=== PATIENT | female | born 1940 | race Caucasian/White ===

== ENCOUNTER 2017-06-20 16:58 | Emergency (ER) | payer MEDICARE ==
[~2017-06-20 16:58] MED LIST: ALPR-411 PO; CLOP75TA32 PO; LEVO150T11 PO; OMEP40CA37 PO; POLY17PO4 PO; PROC10TA13 PO; PROP150T28 PO; SUCR1TAB2 PO; VALA500T38 PO
[2017-06-20] MEDS ORDERED: OCTYL 2-CYANOACRYLATE 1 EACH TP ONE (17:42)
[2017-06-20] MEDS ORDERED: KETOROLAC TROMETHAMINE 30MG/ML ONE (17:56)
[2017-06-20] MEDS ORDERED: ONDANSETRON ODT 4 MG TAB ONE (17:56)
== END 2017-06-20 18:20 | disposition home or self-care (01) ==
LOC: EDH 16:58
DX: S51.811A Laceration without foreign body of right forearm, initial encounter (principal); S40.022A Contusion of left upper arm, initial encounter; W18.39XA Other fall on same level, initial encounter; Y93.K1 Activity, walking an animal; Y92.098 Other place in other non-institutional residence as the place of occurrence of the external cause; Y99.8 Other external cause status
CPT/HCPCS: 12002; 73030; 73060; 73090; 73110; 96372; 99284; J1885

== ENCOUNTER → 2018-02-21 | Outpatient (CLI) | payer MEDICARE ==
[~2018-02-21] MED LIST changes: +LEVO500T2 PO
[2018-02-21 08:33] LABS: CREATININE 1.5 mg/dL (0.5-1.5)
== END | disposition home or self-care (01) ==
LOC: LAB 08:09
PROVIDERS: ATTEND Physical Medicine & Rehabilitation
DX: M48.56XA Collapsed vertebra, not elsewhere classified, lumbar region, initial encounter for fracture (principal); G43.909 Migraine, unspecified, not intractable, without status migrainosus; N18.3 Chronic kidney disease, stage 3 (moderate)
CPT/HCPCS: 36415; 82565; 84520

== ENCOUNTER → 2018-02-23 | Outpatient (CLI) | payer MEDICARE ==
[~2018-02-23] MED LIST changes: +FENTANYL CITRATE PF 50 MCG/1 ML 2ML VIAL ONE; +GADODIAMIDE 10 MMOL/20 ML ML IV ONE; +GADODIAMIDE 5 MMOL/10 ML VIAL 5 MMOL/10 ML ML IV ONE; +MIDAZOLAM HCL 1 MG/ML 2ML VIAL ONE
== END | disposition home or self-care (01) ==
LOC: RAH 07:31
PROVIDERS: ATTEND Physical Medicine & Rehabilitation
DX: M48.56XA Collapsed vertebra, not elsewhere classified, lumbar region, initial encounter for fracture (principal); M47.896 Other spondylosis, lumbar region; M48.061 Spinal stenosis, lumbar region without neurogenic claudication; M51.26 Other intervertebral disc displacement, lumbar region; I12.9 Hypertensive chronic kidney disease with stage 1 through stage 4 chronic kidney disease, or unspecified chronic kidney disease; N18.3 Chronic kidney disease, stage 3 (moderate); E03.9 Hypothyroidism, unspecified; I25.10 Atherosclerotic heart disease of native coronary artery without angina pectoris; Z90.49 Acquired absence of other specified parts of digestive tract; Z90.710 Acquired absence of both cervix and uterus
CPT/HCPCS: 72158; A9579; J2250; J3010; 99152; 99153

== ENCOUNTER 2018-02-24 22:28 | Inpatient (IN) | payer MEDICARE ==
[~2018-02-24] VITALS: Ht 170.2 cm; Wt 61.2 kg
[2018-02-24 21:05] VITALS: BP 107/48
[~2018-02-24 22:28] MED LIST changes: -FENTANYL CITRATE PF 50 MCG/1 ML 2ML VIAL ONE; -GADODIAMIDE 10 MMOL/20 ML ML IV ONE; -GADODIAMIDE 5 MMOL/10 ML VIAL 5 MMOL/10 ML ML IV ONE; -LEVO500T2 PO; -MIDAZOLAM HCL 1 MG/ML 2ML VIAL ONE
[2018-02-24] MEDS ORDERED: KETOROLAC TROMETHAMINE 30MG/ML ONE (22:59)
[2018-02-24] MEDS ORDERED: SODIUM CHLORIDE 0.9% 1000ML 1,000 ML IV ONE (22:59)
[2018-02-24] MEDS ORDERED: ONDANSETRON HCL 4 MG/2 ML VIAL ONE (22:59)
[2018-02-24 23:31] LABS: BASOPHILS % (AUTO) 0.6 % (0.0-5.0); EOSINOPHILS % (AUTO) 1.7 % (0.0-8.0); LYMPHOCYTES % (AUTO) 9.6 % (21.0-51.0); MEAN CORPUSCULAR HEMOGLOBIN 28.6 pg (27.0-33.0); MEAN CORPUSCULAR HGB CONC 32.6 g/dL (32.0-36.0); MEAN CORPUSCULAR VOLUME 87.8 fL (79-99); MONOCYTES % (AUTO) 5.7 % (3.0-13.0); NEUTROPHILS % (AUTO) 82.4 % (40.0-77.0); NUCLEATED RED BLOOD CELLS 0.1 % (0.0-0.19); PLATELET COUNT (AUTO) 635 K/uL (130-400); RED BLOOD CELL COUNT(AUTO) 5.01 MIL/uL (4.00-5.50); RED CELL DISTRIBUTION WIDTH 15.8 % (11.0-15.5); WHITE BLOOD COUNT (AUTO) 19.4 K/uL (4.8-10.8)
[2018-02-24 23:36] LABS: CREATININE 1.3 mg/dL (0.5-1.5); POTASSIUM 4.8 mmol/L (3.5-5.1)
[2018-02-24 23:40] LABS: ALBUMIN 3.3 g/dL (3.5-5.0); BILIRUBIN,TOTAL 0.3 mg/dL (0.2-1.0); TOTAL PROTEIN, SERUM 6.8 g/dL (6.0-8.3)
[2018-02-25] MEDS ORDERED: IOHEXOL-350 75 ML VIAL IV ONE (00:08)
[2018-02-25] MEDS ORDERED: MORPHINE SULFATE 2 MG/ML 1ML SYG ONE (00:09)
[2018-02-25] MEDS ORDERED: ZOSYN 3.375GM+NS 50ML 50 ML IV ONE (00:09)
[2018-02-25] MEDS ORDERED: SODIUM CHLORIDE 0.9% 100 ML IV ONE (00:09)
[2018-02-25 00:22] LABS: APPEARANCE,URINE Clear (CLEAR); BILIRUBIN,URINE Negative (NEGATIVE); COLOR,URINE Yellow (YELLOW); GLUCOSE, URINE (UA) Negative (NEGATIVE); KETONES,URINE Trace mg/dL (NEGATIVE); LEUKOCYTE ESTERASE ,URINE Negative (NEGATIVE); NITRATE,URINE Negative (NEGATIVE); OCCULT BLOOD,URINE Negative (NEGATIVE); PH,URINE 5.5 (5.0-8.0); PROTEIN,URINE Trace (NEGATIVE); UROBILINOGEN,URINE 0.2 mg/dL (0.2-1.0)
[2018-02-25 00:33] LABS: BACTERIA,URINE None Seen /HPF (None Seen); RBC,URINE None Seen /HPF (0-1); WBC,URINE None Seen /HPF (0-1)
[2018-02-25 00:34] LABS: HYALINE CASTS, URINE 0-1 /LPF (0-1 /LPF); MUCUS,URINE Rare LPF (None Seen); SQUAMOUS EPITHELIAL CELL,UR Rare /HPF (0-2)
[2018-02-25] MEDS: SODIUM CHLORIDE 0.9% 1000ML 1,000 ML IV SCH ×3 (02:20→22:20)
[2018-02-25] MEDS ORDERED: MORPHINE SULFATE 4 MG/1ML SYG IV PRN (02:30)
[2018-02-25] MEDS ORDERED: ACETAMINOPHEN 325 MG TAB PO PRN (02:30)
[2018-02-25 03:58] VITALS: BP 112/42
[2018-02-25] MEDS: ZOSYN 3.375GM+NS 50ML 50 ML IV SCH ×3 (04:33→20:33)
[2018-02-25] MEDS: MORPHINE SULFATE 2 MG/ML 1ML SYG IV PRN ×4 (04:41→20:37)
[2018-02-25] MEDS: ONDANSETRON HCL MDV 20ML 2 MG/ML VIAL IV PRN ×3 (04:52→20:35)
[2018-02-25 08:00] VITALS: BP 122/63
[2018-02-25] MEDS: FAMOTIDINE/PF 20 MG/2 ML VIAL IV SCH (09:29)
[2018-02-25] MEDS: ENOXAPARIN SODIUM 30 MG/0.3 ML SQ SCH (09:30)
[2018-02-25] MEDS: ***HM***(Prochlorperazine Maleate 10 MG) PO SCH ×3 (11:25→20:38)
[2018-02-25 11:51] VITALS: BP 116/56
[2018-02-25] MEDS: SUCRALFATE 1 GM TABLET PO SCH ×2 (12:46→17:00)
[2018-02-25] MEDS: TRAMADOL HCL 50 MG TABLET PO SCH ×3 (12:46→23:26)
[2018-02-25] MEDS: PANTOPRAZOLE SODIUM 40 MG TABLET.DR PO SCH (15:22)
[2018-02-25] MEDS: PROPAFENONE HCL 150 MG TABLET PO SCH ×2 (15:22→20:36)
[2018-02-25] MEDS: POLYETHYLENE GLYCOL 3350 17 GM POWD.PACK PO SCH ×2 (15:22→20:37)
[2018-02-25 16:00] VITALS: BP 154/54
[2018-02-25 20:00] VITALS: BP 150/54
[2018-02-25] MEDS: PREGABALIN 75 MG CAPSULE PO SCH (20:36)
[2018-02-25] MEDS: BACLOFEN 10 MG TABLET PO SCH (20:36)
[2018-02-25] MEDS: ALPRAZOLAM 1 MG TAB PO SCH (20:36)
[2018-02-25] MEDS: DEXAMETHASONE 4 MG TAB PO SCH (20:50)
[2018-02-26] VITALS: BP 144/54
[2018-02-26 04:00] VITALS: BP 117/50
[2018-02-26 05:18] LABS: BASOPHILS % (AUTO) 0.4 % (0.0-5.0); HEMATOCRIT 30.7 % (36-48); MEAN CORPUSCULAR HEMOGLOBIN 29.2 pg (27.0-33.0); MEAN CORPUSCULAR HGB CONC 33.6 g/dL (32.0-36.0); MEAN CORPUSCULAR VOLUME 86.7 fL (79-99); MONOCYTES % (AUTO) 0.9 % (3.0-13.0); NEUTROPHILS % (AUTO) 85.7 % (40.0-77.0); PLATELET COUNT (AUTO) 446 K/uL (130-400); RED BLOOD CELL COUNT(AUTO) 3.54 MIL/uL (4.00-5.50); RED CELL DISTRIBUTION WIDTH 15.9 % (11.0-15.5); WHITE BLOOD COUNT (AUTO) 5.2 K/uL (4.8-10.8)
[2018-02-26 05:32] LABS: BILIRUBIN,TOTAL 0.3 mg/dL (0.2-1.0); CREATININE 1.3 mg/dL (0.5-1.5); TOTAL PROTEIN, SERUM 6.5 g/dL (6.0-8.3)
[2018-02-26] MEDS: ***HM***(Prochlorperazine Maleate 10 MG) PO SCH ×3 (06:00→21:39)
[2018-02-26] MEDS: LEVOTHYROXINE 150 MCG TABLET PO SCH (06:19)
[2018-02-26] MEDS: PANTOPRAZOLE SODIUM 40 MG TABLET.DR PO SCH ×2 (06:19→16:50)
[2018-02-26] MEDS: TRAMADOL HCL 50 MG TABLET PO SCH ×3 (06:23→17:00)
[2018-02-26] MEDS: ZOSYN 3.375GM+NS 50ML 50 ML IV SCH ×3 (06:36→21:38)
[2018-02-26 08:00] VITALS: BP 146/62
[2018-02-26] MEDS: SODIUM CHLORIDE 0.9% 1000ML 1,000 ML IV SCH ×2 (08:20→22:17)
[2018-02-26] MEDS: VALACYCLOVIR HCL 500 MG TABLET PO SCH (08:56)
[2018-02-26] MEDS: CLOPIDOGREL BISULFATE 75 MG TAB PO SCH (08:56)
[2018-02-26] MEDS: DEXAMETHASONE 4 MG TAB PO SCH ×3 (08:56→21:38)
[2018-02-26] MEDS: PREGABALIN 75 MG CAPSULE PO SCH ×2 (08:56→21:37)
[2018-02-26] MEDS: POLYETHYLENE GLYCOL 3350 17 GM POWD.PACK PO SCH ×3 (08:57→21:38)
[2018-02-26] MEDS: PROPAFENONE HCL 150 MG TABLET PO SCH ×3 (08:57→21:37)
[2018-02-26] MEDS: ALPRAZOLAM 1 MG TAB PO SCH ×2 (08:57→21:37)
[2018-02-26] MEDS: FAMOTIDINE/PF 20 MG/2 ML VIAL IV SCH (09:00)
[2018-02-26] MEDS ORDERED: LIDOCAINE 5% TOPICAL PATCH TP SCH (09:00)
[2018-02-26] MEDS: ENOXAPARIN SODIUM 30 MG/0.3 ML SQ SCH (09:05)
[2018-02-26 11:00] VITALS: BP 109/62
[2018-02-26] MEDS: SUCRALFATE 1 GM TABLET PO SCH ×3 (12:23→16:50)
[2018-02-26] MEDS: MORPHINE SULFATE 2 MG/ML 1ML SYG IV PRN (13:40)
[2018-02-26 16:00] VITALS: BP 150/74
[2018-02-26 19:10] VITALS: BP 157/60
[2018-02-26] MEDS ORDERED: SODIUM CHLORIDE 0.9% 100 ML IV ONE (21:19)
[2018-02-26] MEDS: BACLOFEN 10 MG TABLET PO SCH (21:38)
[2018-02-27 00:10] VITALS: BP 142/65
[2018-02-27] MEDS: TRAMADOL HCL 50 MG TABLET PO SCH ×3 (00:21→12:27)
[2018-02-27 04:10] VITALS: BP 118/59
[2018-02-27] MEDS ORDERED: SODIUM CHLORIDE 0.9% 100 ML IV ONE (04:35)
[2018-02-27] MEDS: ***HM***(Prochlorperazine Maleate 10 MG) PO SCH ×2 (05:00→12:30)
[2018-02-27] MEDS: ZOSYN 3.375GM+NS 50ML 50 ML IV SCH ×2 (05:00→13:14)
[2018-02-27] MEDS: LEVOTHYROXINE 150 MCG TABLET PO SCH (06:15)
[2018-02-27] MEDS: SUCRALFATE 1 GM TABLET PO SCH ×2 (07:05→12:27)
[2018-02-27] MEDS: PANTOPRAZOLE SODIUM 40 MG TABLET.DR PO SCH ×2 (07:05→15:18)
[2018-02-27 08:05] VITALS: BP 146/68
[2018-02-27] MEDS ORDERED: LEVO500T2 PO (08:53)
[2018-02-27] MEDS: PREGABALIN 75 MG CAPSULE PO SCH (10:16)
[2018-02-27] MEDS: VALACYCLOVIR HCL 500 MG TABLET PO SCH (10:17)
[2018-02-27] MEDS: ALPRAZOLAM 1 MG TAB PO SCH (10:17)
[2018-02-27] MEDS: CLOPIDOGREL BISULFATE 75 MG TAB PO SCH (10:17)
[2018-02-27] MEDS: PROPAFENONE HCL 150 MG TABLET PO SCH ×2 (10:17→15:24)
[2018-02-27] MEDS: FAMOTIDINE/PF 20 MG/2 ML VIAL IV SCH (10:18)
[2018-02-27] MEDS: DEXAMETHASONE 4 MG TAB PO SCH ×2 (10:19→15:25)
[2018-02-27] MEDS: ENOXAPARIN SODIUM 30 MG/0.3 ML SQ SCH (10:20)
[2018-02-27 11:10] VITALS: BP 135/53
[2018-02-27] MEDS: POLYETHYLENE GLYCOL 3350 17 GM POWD.PACK PO SCH ×2 (12:28→15:17)
[2018-02-27] MEDS: ONDANSETRON HCL MDV 20ML 2 MG/ML VIAL IV PRN (13:14)
[2018-02-27] MEDS: SODIUM CHLORIDE 0.9% 1000ML 1,000 ML IV SCH ×2 (13:25→15:33)
[2018-02-27] MEDS ORDERED: HEPARIN SODIUM/PF 100UNIT/ML 5ML SYRINGE IV ONE (21:45)
== END 2018-02-27 21:09 | disposition home or self-care (01) | DRG 391 ==
LOC: EDH 22:28 → EDHIP 02-25 00:12 → 3BH 02-25 00:48
PROVIDERS: ADMIT Internal Medicine; ATTEND Internal Medicine
DX: K52.9 Noninfective gastroenteritis and colitis, unspecified (principal); J18.9 Pneumonia, unspecified organism; I50.32 Chronic diastolic (congestive) heart failure; I13.0 Hypertensive heart and chronic kidney disease with heart failure and stage 1 through stage 4 chronic kidney disease, or unspecified chronic kidney disease; R65.10 Systemic inflammatory response syndrome (SIRS) of non-infectious origin without acute organ dysfunction; M47.816 Spondylosis without myelopathy or radiculopathy, lumbar region; G89.4 Chronic pain syndrome; M54.9 Dorsalgia, unspecified; N18.9 Chronic kidney disease, unspecified; M19.90 Unspecified osteoarthritis, unspecified site; M51.36 Other intervertebral disc degeneration, lumbar region; Z96.619 Presence of unspecified artificial shoulder joint; G43.909 Migraine, unspecified, not intractable, without status migrainosus; I48.91 Unspecified atrial fibrillation; E03.9 Hypothyroidism, unspecified; Z98.82 Breast implant status; Z86.73 Personal history of transient ischemic attack (TIA), and cerebral infarction without residual deficits; Z87.440 Personal history of urinary (tract) infections; Z87.11 Personal history of peptic ulcer disease; Z82.3 Family history of stroke; Z82.49 Family history of ischemic heart disease and other diseases of the circulatory system; Z80.9 Family history of malignant neoplasm, unspecified; S32.029D Unspecified fracture of second lumbar vertebra, subsequent encounter for fracture with routine healing
CPT/HCPCS: 36415; 71045; 74176; 80053; 81001; 83690; 84484; 85025; 87040; 93005; J1642; J1650; J1885; J2270; J2405; J2543; J3490; J7030; J8540; Q2038; Q9967

== ENCOUNTER 2018-03-27 14:58 | Emergency (ER) | payer MEDICARE ==
[~2018-03-27 14:58] MED LIST changes: -CLOP75TA32 PO; +LEVO500T2 PO; +TRAM50TA2 PO
[2018-03-27] MEDS ORDERED: ACETAMINOPHEN-CODEINE 300/30MG TAB ONE (16:28)
== END 2018-03-27 17:17 | disposition home or self-care (01) ==
LOC: EDH 14:58
DX: S00.33XA Contusion of nose, initial encounter (principal); G89.29 Other chronic pain; M54.2 Cervicalgia; M54.9 Dorsalgia, unspecified; F41.9 Anxiety disorder, unspecified; G43.909 Migraine, unspecified, not intractable, without status migrainosus; E07.9 Disorder of thyroid, unspecified; Z86.73 Personal history of transient ischemic attack (TIA), and cerebral infarction without residual deficits; Z90.49 Acquired absence of other specified parts of digestive tract; Z98.890 Other specified postprocedural states; Z88.6 Allergy status to analgesic agent; Z88.8 Allergy status to other drugs, medicaments and biological substances; W18.39XA Other fall on same level, initial encounter; Y93.01 Activity, walking, marching and hiking; Y92.89 Other specified places as the place of occurrence of the external cause; Y99.8 Other external cause status
CPT/HCPCS: 70450; 70486; 72125; 72131

== ENCOUNTER → 2018-04-02 | Outpatient (CLI) | payer MEDICARE | END | disposition home or self-care (01) | LOC: RAH 10:40 | PROVIDERS: ATTEND Family Medicine | DX: S60.211A Contusion of right wrist, initial encounter (principal); W19.XXXA Unspecified fall, initial encounter; Y93.89 Activity, other specified; Y92.89 Other specified places as the place of occurrence of the external cause; Y99.8 Other external cause status | CPT/HCPCS: 73110 ==

== ENCOUNTER 2018-04-10 16:34 | Emergency (ER) | payer MEDICARE | END 2018-04-10 19:25 | disposition home or self-care (01) | LOC: EDH 16:34 | DX: S00.83XA Contusion of other part of head, initial encounter (principal); S40.022A Contusion of left upper arm, initial encounter; S40.021A Contusion of right upper arm, initial encounter; G89.29 Other chronic pain; M54.9 Dorsalgia, unspecified; G43.909 Migraine, unspecified, not intractable, without status migrainosus; F41.9 Anxiety disorder, unspecified; E07.9 Disorder of thyroid, unspecified; Z88.6 Allergy status to analgesic agent; Z88.8 Allergy status to other drugs, medicaments and biological substances; Z86.73 Personal history of transient ischemic attack (TIA), and cerebral infarction without residual deficits; Z90.49 Acquired absence of other specified parts of digestive tract; Z98.890 Other specified postprocedural states; W18.39XA Other fall on same level, initial encounter; Y93.01 Activity, walking, marching and hiking; Y92.89 Other specified places as the place of occurrence of the external cause; Y99.8 Other external cause status ==

== ENCOUNTER 2018-04-28 16:34 | Emergency (ER) | payer MEDICARE ==
[2018-04-28] MEDS ORDERED: ACETAMINOPHEN 325 MG TAB ONE (18:01)
[2018-04-28 19:27] LABS: INR 0.91 (0.85-1.15); PARTIAL THROMBOPLASTIN TIME 25.1 SEC (26.3-35.5); PROTHROMBIN TIME 9.6 SEC (9.6-11.6)
[2018-04-28] MEDS ORDERED: OCTYL 2-CYANOACRYLATE 1 EACH TP ONE (20:01)
[2018-04-28] MEDS ORDERED: LIDOCAINE 1%-EPI 1:100,000 20 ML VIAL IJ ONE (20:25)
[2018-04-28] MEDS ORDERED: TRAMADOL HCL 50 MG TABLET ONE (20:51)
== END 2018-04-28 22:16 | disposition home or self-care (01) ==
LOC: EDH 16:34
DX: S01.112A Laceration without foreign body of left eyelid and periocular area, initial encounter (principal); S51.002A Unspecified open wound of left elbow, initial encounter; S80.211A Abrasion, right knee, initial encounter; S50.811A Abrasion of right forearm, initial encounter; F41.9 Anxiety disorder, unspecified; G43.909 Migraine, unspecified, not intractable, without status migrainosus; E07.9 Disorder of thyroid, unspecified; G89.29 Other chronic pain; M54.9 Dorsalgia, unspecified; R79.1 Abnormal coagulation profile; Z88.6 Allergy status to analgesic agent; Z88.8 Allergy status to other drugs, medicaments and biological substances; Z90.49 Acquired absence of other specified parts of digestive tract; Z86.73 Personal history of transient ischemic attack (TIA), and cerebral infarction without residual deficits; Z98.890 Other specified postprocedural states; Z79.899 Other long term (current) drug therapy; W06.XXXA Fall from bed, initial encounter; Y93.89 Activity, other specified; Y92.89 Other specified places as the place of occurrence of the external cause; Y99.8 Other external cause status
CPT/HCPCS: 12001; 12013; 36415; 70450; 72125; 73070; 85610; 85730; 99284; J3490

== ENCOUNTER 2018-05-01 09:03 | Emergency (ER) | payer MEDICARE | END 2018-05-01 09:55 | disposition home or self-care (01) | LOC: EDH 09:03 | DX: S52.201A Unspecified fracture of shaft of right ulna, initial encounter for closed fracture (principal); M50.222 Other cervical disc displacement at C5-C6 level; M47.812 Spondylosis without myelopathy or radiculopathy, cervical region; G89.29 Other chronic pain; M54.9 Dorsalgia, unspecified; G43.909 Migraine, unspecified, not intractable, without status migrainosus; E07.9 Disorder of thyroid, unspecified; F41.9 Anxiety disorder, unspecified; Z88.6 Allergy status to analgesic agent; Z86.73 Personal history of transient ischemic attack (TIA), and cerebral infarction without residual deficits; Z98.890 Other specified postprocedural states; W18.39XA Other fall on same level, initial encounter; Y93.01 Activity, walking, marching and hiking; Y92.89 Other specified places as the place of occurrence of the external cause; Y99.8 Other external cause status | CPT/HCPCS: 29125; 72141; 73090 ==

== ENCOUNTER → 2018-05-01 | Outpatient (CLI) | payer MEDICARE | END | disposition home or self-care (01) | LOC: RAH 07:02 | PROVIDERS: ATTEND Neurological Surgery | DX: S52.601A Unspecified fracture of lower end of right ulna, initial encounter for closed fracture (principal); M50.123 Cervical disc disorder at C6-C7 level with radiculopathy; M48.02 Spinal stenosis, cervical region; M47.22 Other spondylosis with radiculopathy, cervical region; X58.XXXA Exposure to other specified factors, initial encounter; Y93.89 Activity, other specified; Y92.89 Other specified places as the place of occurrence of the external cause; Y99.8 Other external cause status | CPT/HCPCS: 72141; 73090 ==

== ENCOUNTER → 2018-05-24 | Outpatient (CLI) | payer MEDICARE ==
[2018-05-24 14:06] LABS: CREATININE 1.1 mg/dL (0.5-1.5)
== END | disposition home or self-care (01) ==
LOC: LAB 13:12
PROVIDERS: ATTEND Neurological Surgery
DX: M54.16 Radiculopathy, lumbar region (principal)
CPT/HCPCS: 36415; 82565; 84520

== ENCOUNTER → 2018-05-31 | Outpatient (CLI) | payer MEDICARE ==
[~2018-05-31] MED LIST changes: +GADODIAMIDE 5 MMOL/10 ML VIAL 5 MMOL/10 ML ML IV ONE
== END | disposition home or self-care (01) ==
LOC: RAH 15:01
PROVIDERS: ATTEND Neurological Surgery
DX: M48.07 Spinal stenosis, lumbosacral region (principal); M51.36 Other intervertebral disc degeneration, lumbar region; M54.16 Radiculopathy, lumbar region; M86.8X8 Other osteomyelitis, other site
CPT/HCPCS: 72158; A9579

== ENCOUNTER → 2018-08-03 | Outpatient (CLI) | payer MEDICARE ==
[~2018-08-03] MED LIST changes: -GADODIAMIDE 5 MMOL/10 ML VIAL 5 MMOL/10 ML ML IV ONE
== END | disposition home or self-care (01) ==
LOC: RAH 12:21
PROVIDERS: ATTEND Physical Medicine & Rehabilitation
DX: M75.122 Complete rotator cuff tear or rupture of left shoulder, not specified as traumatic (principal); M25.412 Effusion, left shoulder; M19.012 Primary osteoarthritis, left shoulder
CPT/HCPCS: 73221

== ENCOUNTER 2018-08-05 14:29 | Emergency (ER) | payer MEDICARE ==
[2018-08-05] MEDS ORDERED: HYDROCODONE/ACETAMINOPHEN 10/325 MG TAB ONE (14:55)
[2018-08-05] MEDS ORDERED: MORPHINE SULFATE 4 MG/1ML SYG ONE (16:24)
[2018-08-05 18:56] LABS: BASOPHILS % (AUTO) 0.5 % (0.0-5.0); EOSINOPHILS % (AUTO) 3.1 % (0.0-8.0); HEMATOCRIT 30.1 % (36-48); MEAN CORPUSCULAR HEMOGLOBIN 26.4 pg (27.0-33.0); MEAN CORPUSCULAR HGB CONC 32.3 g/dL (32.0-36.0); MEAN CORPUSCULAR VOLUME 81.8 fL (79-99); MONOCYTES % (AUTO) 10.5 % (3.0-13.0); NEUTROPHILS % (AUTO) 61.9 % (40.0-77.0); PLATELET COUNT (AUTO) 261 K/uL (130-400); RED BLOOD CELL COUNT(AUTO) 3.68 MIL/uL (4.00-5.50); WHITE BLOOD COUNT (AUTO) 4.7 K/uL (4.8-10.8)
[2018-08-05 19:07] LABS: CREATININE 1.2 mg/dL (0.5-1.5); POTASSIUM 4.4 mmol/L (3.5-5.1)
[2018-08-05 19:08] LABS: INR 0.94 (0.85-1.15); PARTIAL THROMBOPLASTIN TIME 26.1 SEC (26.3-35.5); PROTHROMBIN TIME 9.9 SEC (9.6-11.6)
[2018-08-05 19:12] LABS: ALBUMIN 3.2 g/dL (3.5-5.0); BILIRUBIN,TOTAL 0.3 mg/dL (0.2-1.0); TOTAL PROTEIN, SERUM 6.1 g/dL (6.0-8.3)
[2018-08-05] MEDS ORDERED: HEPARIN SODIUM/PF 100UNIT/ML 5ML SYRINGE IV ONE (21:30)
== END 2018-08-05 21:57 | disposition home or self-care (01) ==
LOC: EDH 14:29
DX: S52.691A Other fracture of lower end of right ulna, initial encounter for closed fracture (principal); E07.9 Disorder of thyroid, unspecified; G43.909 Migraine, unspecified, not intractable, without status migrainosus; F41.9 Anxiety disorder, unspecified; F12.10 Cannabis abuse, uncomplicated; F14.10 Cocaine abuse, uncomplicated; Z86.73 Personal history of transient ischemic attack (TIA), and cerebral infarction without residual deficits; Z87.891 Personal history of nicotine dependence; Z88.1 Allergy status to other antibiotic agents; Z88.6 Allergy status to analgesic agent; W18.39XA Other fall on same level, initial encounter; Y93.89 Activity, other specified; Y92.098 Other place in other non-institutional residence as the place of occurrence of the external cause; Y99.8 Other external cause status
CPT/HCPCS: 29125; 36415; 71045; 73030; 73090; 80053; 84484; 85025; 85610; 85730; 93005; 96372; 96374; 99284; J1642; J2270

== ENCOUNTER 2018-10-29 10:16 | Emergency (ER) | payer MEDICARE | END 2018-10-29 14:51 | disposition home or self-care (01) | LOC: EDH 10:16 | DX: G89.29 Other chronic pain (principal); M25.552 Pain in left hip; F41.9 Anxiety disorder, unspecified; G43.909 Migraine, unspecified, not intractable, without status migrainosus; E07.9 Disorder of thyroid, unspecified; Z86.73 Personal history of transient ischemic attack (TIA), and cerebral infarction without residual deficits; Z88.6 Allergy status to analgesic agent; Z88.8 Allergy status to other drugs, medicaments and biological substances; W18.39XA Other fall on same level, initial encounter; Y93.89 Activity, other specified; Y92.098 Other place in other non-institutional residence as the place of occurrence of the external cause; Y99.8 Other external cause status | CPT/HCPCS: 72170 ==

== ENCOUNTER → 2018-12-06 | Outpatient (CLI) | payer MEDICARE | END | disposition home or self-care (01) | LOC: RAH 12:34 | PROVIDERS: ATTEND Physical Medicine & Rehabilitation | DX: M48.56XA Collapsed vertebra, not elsewhere classified, lumbar region, initial encounter for fracture (principal); M51.36 Other intervertebral disc degeneration, lumbar region; M47.816 Spondylosis without myelopathy or radiculopathy, lumbar region; M48.061 Spinal stenosis, lumbar region without neurogenic claudication | CPT/HCPCS: 72131 ==

== ENCOUNTER 2019-01-21 11:42 | Emergency (ER) | payer MEDICARE ==
[2019-01-21 12:29] LABS: APPEARANCE,URINE Cloudy (CLEAR); BILIRUBIN,URINE Negative (NEGATIVE); COLOR,URINE Yellow (YELLOW); GLUCOSE, URINE (UA) Negative (NEGATIVE); KETONES,URINE Negative (NEGATIVE); LEUKOCYTE ESTERASE ,URINE Large (NEGATIVE); NITRATE,URINE Positive (NEGATIVE); OCCULT BLOOD,URINE Moderate (NEGATIVE); PH,URINE 5.5 (5.0-8.0); PROTEIN,URINE Negative (NEGATIVE); UROBILINOGEN,URINE 0.2 mg/dL (0.2-1.0)
[2019-01-21 12:37] LABS: AMPHET/METH SCREEN,URINE NEGATIVE (NEGATIVE); BARBITURATE SCREEN, URINE NEGATIVE (NEGATIVE); BENZODIAZEPINES SCREEN,URINE POSITIVE (NEGATIVE); CANNABINOID SCREEN,URINE NEGATIVE (NEGATIVE); COCAINE SCREEN,URINE NEGATIVE (NEGATIVE); OPIATE SCREEN,URINE NEGATIVE (NEGATIVE); PHENCYCLIDINE SCREEN,URINE NEGATIVE (NEGATIVE)
[2019-01-21 12:50] LABS: BACTERIA,URINE Many /HPF (None Seen); SQUAMOUS EPITHELIAL CELL,UR Rare /HPF (0-2); WBC,URINE >100 /HPF (0-1)
[2019-01-21] MEDS ORDERED: CEFTRIAXONE SODIUM 1 GM ONE (14:10)
[2019-01-21] MEDS ORDERED: SODIUM CHLORIDE 0.9% 100 ML IV ONE (14:10)
== END 2019-01-21 15:30 | disposition home or self-care (01) ==
LOC: EDH 11:42
DX: N39.0 Urinary tract infection, site not specified (principal); F41.9 Anxiety disorder, unspecified; G89.29 Other chronic pain; G43.909 Migraine, unspecified, not intractable, without status migrainosus; E07.9 Disorder of thyroid, unspecified; Z86.73 Personal history of transient ischemic attack (TIA), and cerebral infarction without residual deficits; Z87.891 Personal history of nicotine dependence; Z88.6 Allergy status to analgesic agent; Z88.8 Allergy status to other drugs, medicaments and biological substances
CPT/HCPCS: 36415; 80305; 81001; 83690; 87077; 87088; 87186; 96374; 99284; J0696

== ENCOUNTER → 2019-07-09 | Outpatient (CLI) | payer MEDICARE ==
[~2019-07-09] MED LIST changes: +OMEP40CA13 PO; -OMEP40CA37 PO; -VALA500T38 PO; +VALA500T42 PO
== END | disposition home or self-care (01) ==
LOC: RAH 09:16
PROVIDERS: ATTEND Family Medicine
DX: Z01.812 Encounter for preprocedural laboratory examination (principal); M47.814 Spondylosis without myelopathy or radiculopathy, thoracic region; I70.0 Atherosclerosis of aorta; Z98.890 Other specified postprocedural states
CPT/HCPCS: 71046

== ENCOUNTER 2019-08-02 10:00 | Inpatient (IN) | payer MEDICARE ==
[~2019-08-02] VITALS: Ht 165.1 cm; Wt 65.4 kg
[~2019-08-02 10:00] MED LIST changes: -ALPR-411 PO; -LEVO500T2 PO; -OMEP40CA13 PO; -POLY17PO4 PO; -PROC10TA13 PO; -PROP150T28 PO; -TRAM50TA2 PO; -VALA500T42 PO
[2019-08-02 12:19] LABS: INR 0.93 (0.85-1.15); PROTHROMBIN TIME 10.1 SEC (9.6-11.6)
[2019-08-02 12:42] VITALS: BP 171/92
[2019-08-02] MEDS ORDERED: QUET100T33 PO (13:33)
[2019-08-02] MEDS ORDERED: MELO-108 PO (13:33)
[2019-08-02] MEDS ORDERED: VITA100049 PO (13:33)
[2019-08-02] MEDS ORDERED: ACET325T51 PO (13:33)
[2019-08-02] MEDS ORDERED: ASPI-555 PO (13:33)
[2019-08-02] MEDS ORDERED: SUCR1TAB2 PO (13:33)
[2019-08-02] MEDS ORDERED: LORA0.5P MC (13:33)
[2019-08-02] MEDS ORDERED: PROG100C11 PO (13:33)
[2019-08-02] MEDS ORDERED: DOCU100C33 PO (13:33)
[2019-08-02] MEDS ORDERED: BUSP10TA3 PO (13:33)
[2019-08-02] MEDS ORDERED: CALC-1123 PO (13:33)
[2019-08-02] MEDS ORDERED: CHOL100046 PO (13:33)
[2019-08-02] MEDS ORDERED: MEMA5TAB42 PO (13:33)
[2019-08-02] MEDS ORDERED: MIRT15TA6 PO (13:33)
[2019-08-02] MEDS ORDERED: DONE10TA43 PO (13:33)
[2019-08-02] MEDS ORDERED: PANT40TA25 PO (13:33)
[2019-08-02] MEDS ORDERED: POTA-79 PO (13:33)
[2019-08-02] MEDS ORDERED: IBUP-2077 PO (13:33)
[2019-08-02] MEDS ORDERED: FURO40TA5 PO (13:33)
[2019-08-02] MEDS ORDERED: LACT10SO62 PO (13:33)
[2019-08-05] VITALS (24 sets, daily range): BP systolic 93–150; BP diastolic 48–67
[2019-08-05] MEDS: CEFAZOLIN SODIUM 1 GM VIAL IVP SCH ×2 (05:00→15:30)
[2019-08-05] MEDS ORDERED: SODIUM CHLORIDE 0.9% 1000ML 1,000 ML IV ONE (11:08)
[2019-08-05] MEDS ORDERED: LACTATED RINGERS 1000ML 0 ML IV ONE (11:08)
[2019-08-05] MEDS ORDERED: BACL10TA PO (11:33)
--- NOTE | 2019-08-05 12:13 | NUR ---
port a cath right chest portacath access using sterile technique used a 22gauge 1 inch needle. good blood return , portacath flushed without difficulty, pt sanjana well. no adverse reactions noted. right chest port a cath covered with opsite. site asymptomatic.
[2019-08-05] MEDS ORDERED: KETOROLAC TROMETHAMINE 15MG/ML ONE (13:40)
[2019-08-05] MEDS ORDERED: ACETAMINOPHEN EXTRA STRENGTH 500 MG TABLET ONE (13:40)
[2019-08-05] MEDS ORDERED: CELECOXIB 200 MG CAP ONE (13:41)
[2019-08-05] MEDS ORDERED: ROPIVACAINE 0.5% 5MG/ML 30ML IJ ONE (14:17)
[2019-08-05] MEDS ORDERED: ROCURONIUM 10MG/1ML SYR 10 MG/ML ML ONE ×2 (14:18→17:06)
[2019-08-05] MEDS ORDERED: PROPOFOL 10 MG/ML 20ML VIAL IV ONE (14:18)
[2019-08-05] MEDS ORDERED: LIDOCAINE PF 2% 5ML ABBOJECT ONE (14:18)
[2019-08-05] MEDS ORDERED: FENTANYL CITRATE PF 50 MCG/1 ML 2ML VIAL ONE (14:19)
[2019-08-05] MEDS ORDERED: MIDAZOLAM HCL 1 MG/ML 2ML VIAL ONE (14:52)
[2019-08-05] MEDS ORDERED: GLYCOPYRROLATE 1 MG/5 ML SYRINGE ONE (15:43)
[2019-08-05] MEDS ORDERED: EPHEDRINE SULFATE 50 MG/ML AMPULE ONE (15:44)
[2019-08-05] MEDS: TRANEXAMIC ACID 1000MG/10ML ONE ×2 (15:50→18:45)
[2019-08-05] MEDS ORDERED: NEOSTIGMINE 5MG/5ML SYR IV ONE (16:03)
[2019-08-05] MEDS ORDERED: ONDANSETRON HCL 4 MG/2 ML VIAL ONE (17:52)
[2019-08-05] MEDS: CEFAZOLIN SODIUM 1 GM VIAL ONE ×2 (18:00→18:01)
[2019-08-05] MEDS ORDERED: CALCIUM CARBONATE 500 MG TABLET PO PRN (19:45)
[2019-08-05] MEDS ORDERED: DiphenhydrAMINE HCL 50 MG/ML VIAL IVP PRN (19:45)
[2019-08-05] MEDS ORDERED: POTASSIUM CHLORIDE 20MEQ/100ML 100 ML IV PRN (19:45)
[2019-08-05] MEDS ORDERED: LIDOCAINE HCL-MPF 1% 2ML VIAL IV PRN (19:45)
[2019-08-05] MEDS ORDERED: FE FUMARATE/FA/MV, MIN COMB#15 1 TAB PO PRN (19:45)
[2019-08-05] MEDS ORDERED: POTASSIUM CHLORIDE 20 MEQ ERTAB PO PRN (19:45)
[2019-08-05] MEDS ORDERED: TRAMADOL HCL 50 MG TABLET PO PRN (19:45)
[2019-08-05] MEDS ORDERED: POTASSIUM CHLORIDE 10% ELIXIR 20 MEQ/15 ML UDCUP PO PRN (19:45)
[2019-08-05] MEDS ORDERED: TEMAZEPAM 15 MG CAPSULE PO PRN (19:45)
[2019-08-05] MEDS: CELECOXIB 200 MG CAP PO SCH (20:31)
[2019-08-05] MEDS: FAMOTIDINE 20MG TAB 20 MG TAB PO SCH (20:31)
[2019-08-05] MEDS: ACETAMINOPHEN EXTRA STRENGTH 500 MG TABLET PO SCH (20:32)
[2019-08-05] MEDS: ONDANSETRON HCL 4 MG/2 ML VIAL IVP PRN (20:40)
[2019-08-05] MEDS: OXYCODONE HCL 5 MG TAB PO PRN (20:49)
[2019-08-05] MEDS: ASPIRIN 81MG TAB.CHEW PO SCH (20:49)
[2019-08-05] MEDS: PREGABALIN 25 MG CAP PO SCH (20:49)
[2019-08-05] MEDS: LACTULOSE 20 GM/30 ML UDCUP PO SCH (21:00)
[2019-08-05] MEDS: LORAZEPAM 0.5 MG TABLET PO SCH (21:00)
[2019-08-05] MEDS: PROGESTERONE MICRONIZED 100 MG PO SCH (21:00)
[2019-08-05] MEDS ORDERED: MIRTAZAPINE 15 MG TABLET PO SCH (21:00)
[2019-08-05] MEDS ORDERED: BACLOFEN 10 MG TABLET PO SCH (21:00)
[2019-08-05] MEDS: BUSPIRONE HCL 5 MG TABLET PO SCH (21:00)
[2019-08-05] MEDS: MEMANTINE HCL 5 MG TABLET PO SCH (21:00)
[2019-08-05] MEDS: DOCUSATE SODIUM 100 MG CAP PO SCH (21:00)
[2019-08-05] MEDS: SODIUM CHLORIDE 0.9% 1000ML 1,000 ML IV SCH (21:07)
--- NOTE | 2019-08-05 22:45 | NUR ---
DR. JIL SAN, NOTIFIED OF BP, PT ASYMPTOMATIC , PT DENIES CHEST PAIN DENIES SOB STATED JUST TO MONITORED, NO NEW ORDERS
[2019-08-06] VITALS (8 sets, daily range): BP systolic 84–125; BP diastolic 43–59
[2019-08-06] MEDS: CEFAZOLIN SODIUM 1 GM VIAL IVP SCH ×2 (00:35→07:59)
[2019-08-06] MEDS ORDERED: LEVOTHYROXINE 75 MCG TABLET ONE (05:09)
[2019-08-06] MEDS: ACETAMINOPHEN EXTRA STRENGTH 500 MG TABLET PO SCH ×3 (05:28→21:56)
[2019-08-06] MEDS: OXYCODONE HCL 5 MG TAB PO PRN ×2 (05:28→12:10)
[2019-08-06] MEDS: ONDANSETRON HCL 4 MG/2 ML VIAL IVP PRN ×2 (05:35→19:58)
[2019-08-06 05:46] LABS: HEMATOCRIT 28.8 % (36-48); MEAN CORPUSCULAR HEMOGLOBIN 29.2 pg (27.0-33.0); MEAN CORPUSCULAR HGB CONC 31.6 g/dL (32.0-36.0); MEAN CORPUSCULAR VOLUME 92.3 fL (79-99); PLATELET COUNT (AUTO) 182 K/uL (130-400); RED BLOOD CELL COUNT(AUTO) 3.12 MIL/uL (4.00-5.50); RED CELL DISTRIBUTION WIDTH 15.7 % (11.0-15.5); WHITE BLOOD COUNT (AUTO) 6.6 K/uL (4.8-10.8)
[2019-08-06 06:30] LABS: CREATININE 1.1 mg/dL (0.5-1.5); POTASSIUM 3.9 mmol/L (3.5-5.1)
[2019-08-06] MEDS: LEVOTHYROXINE 150 MCG TABLET PO SCH (06:30)
[2019-08-06] MEDS: KETOROLAC TROMETHAMINE 15MG/ML IV PRN ×2 (07:51→17:15)
[2019-08-06] MEDS: DOCUSATE SODIUM 100 MG CAP PO SCH ×2 (07:52→21:56)
[2019-08-06] MEDS: PREGABALIN 25 MG CAP PO SCH ×2 (07:52→21:55)
[2019-08-06] MEDS: CELECOXIB 200 MG CAP PO SCH ×2 (07:52→21:57)
[2019-08-06] MEDS: FAMOTIDINE 20MG TAB 20 MG TAB PO SCH ×2 (07:52→21:55)
[2019-08-06] MEDS: POTASSIUM CHLORIDE 20 MEQ ERTAB PO SCH (07:52)
[2019-08-06] MEDS: ASPIRIN 81MG TAB.CHEW PO SCH ×2 (07:52→21:56)
[2019-08-06] MEDS: LORAZEPAM 0.5 MG TABLET PO SCH (07:52)
[2019-08-06] MEDS: PANTOPRAZOLE SODIUM 40 MG TABLET.DR PO SCH (07:52)
[2019-08-06] MEDS: BUSPIRONE HCL 5 MG TABLET PO SCH ×2 (07:52→21:56)
[2019-08-06] MEDS: POLYETHYLENE GLYCOL 3350 17 GM POWD.PACK PO SCH (07:53)
[2019-08-06] MEDS: MEMANTINE HCL 5 MG TABLET PO SCH ×2 (08:00→21:57)
[2019-08-06] MEDS: QUETIAPINE FUMARATE 100 MG TAB PO SCH (08:03)
[2019-08-06] MEDS ORDERED: FUROSEMIDE 40 MG TABLET PO SCH (09:00)
--- NOTE | 2019-08-06 09:00 | NUR ---
initial cm assessment and referral met with leighton at bedside for dc planning; lives with spouse, jimmy used no DME, home is safe and accessible, does not drive, spouse jose does and will provide transport. has home health , cannot remember name, call to spouse, name is [facility], call to and confirmed is patient, chart tagged- nothing yet sent to , waiting for MD to inform him , cm to follow Addendum: 08/08/19 at 0890 by MARIAH SIERRA RN CM Amended: Links added.
[2019-08-06] MEDS: SODIUM CHLORIDE 0.9% 1000ML 1,000 ML IV SCH (14:03)
[2019-08-06] MEDS ORDERED: SODIUM CHLORIDE 0.9% 1000ML 250 ML IV SCH (15:45)
--- NOTE | 2019-08-06 15:48 | NUR ---
BP 93/49, PT C/O DIZZINESS LIGHTHEADED, O2 SAT 96%, AAO3, NO SIGNS OF DISTRESSED, PALOMARES DRAINING, HEMOVAC OUTPUT CURRENTLY 25, INFORMED DR LEY OF FINDINGS, MEDICATION LIST REVIEWED DC'D FUROSEMIDE, LORAZEPAM, MIRTAZAPINE, DC PALOMARES,NS 250 ML BOLUS, STAT H/H, ORDERS NOTED CARRIED OUT, WILL CONT TO MONITOR.
[2019-08-06 17:08] LABS: HEMATOCRIT 29.1 % (36-48)
[2019-08-06] MEDS: PROGESTERONE MICRONIZED 100 MG PO SCH (21:00)
[2019-08-06] MEDS: LACTULOSE 20 GM/30 ML UDCUP PO SCH (21:59)
[2019-08-07 03:00] VITALS: BP 115/49
[2019-08-07] MEDS: ACETAMINOPHEN EXTRA STRENGTH 500 MG TABLET PO SCH ×2 (04:02→12:36)
[2019-08-07] MEDS: OXYCODONE HCL 5 MG TAB PO PRN ×4 (04:02→17:31)
--- NOTE | 2019-08-07 04:20 | NUR ---
URINARY RETENTION PATIENT C/O NEEDING TO VOID, BUT UNABLE TO. A BLADDER SCAN WAS PERFORMED, WITH A READING OF 819 ML. A STRAIGHT CATHETER WAS PERFORMED PER STANDING ORDER. 820 ML WAS OBTAINED FROM THE STRAIGHT CATHETERIZATION. STERILE TECHNIQUE WAS PERFORMED. PATIENT RELIEVED FROM DISCOMFORT. BED IN LOWEST POSITION. CALL LIGHT WITHIN REACH. WILL CONTINUE WITH PLAN OF CARE.
[2019-08-07 05:14] LABS: HEMATOCRIT 28.1 % (36-48)
[2019-08-07] MEDS: LEVOTHYROXINE 150 MCG TABLET PO SCH (06:21)
[2019-08-07] MEDS: PANTOPRAZOLE SODIUM 40 MG TABLET.DR PO SCH (06:33)
[2019-08-07 08:08] VITALS: BP 112/51
[2019-08-07] MEDS: PREGABALIN 25 MG CAP PO SCH (08:40)
[2019-08-07] MEDS: BUSPIRONE HCL 5 MG TABLET PO SCH (08:40)
[2019-08-07] MEDS: CELECOXIB 200 MG CAP PO SCH (08:40)
[2019-08-07] MEDS: ASPIRIN 81MG TAB.CHEW PO SCH (08:40)
[2019-08-07] MEDS: QUETIAPINE FUMARATE 100 MG TAB PO SCH (08:41)
[2019-08-07] MEDS: POLYETHYLENE GLYCOL 3350 17 GM POWD.PACK PO SCH (08:41)
[2019-08-07] MEDS: DOCUSATE SODIUM 100 MG CAP PO SCH (08:41)
[2019-08-07] MEDS: MEMANTINE HCL 5 MG TABLET PO SCH (08:41)
[2019-08-07] MEDS: POTASSIUM CHLORIDE 20 MEQ ERTAB PO SCH (08:41)
[2019-08-07] MEDS: FAMOTIDINE 20MG TAB 20 MG TAB PO SCH (08:42)
[2019-08-07 11:09] VITALS: BP 109/56
--- NOTE | 2019-08-07 15:21 | NUR ---
PT HAS [facility] PREVIOUSLY DR. LEY REQUESTING THE OCCUPATIONAL THERAPIST AT REPLACED BY [facility]- ALL ARRANGEMENTS MADE, WILL BE [facility] FOR 3 WEEKS, THEN BACK TO [facility]. Addendum: 08/07/19 at 1522 by MARIAH SIERRA RN CM Amended: Links added.
[2019-08-07 16:26] VITALS: BP 112/50
[2019-08-07] MEDS ORDERED: HYDR-4457 PO (17:59)
[2019-08-07] MEDS ORDERED: HEPARIN SODIUM/PF 100UNIT/ML 5ML SYRINGE IV SCH (19:00)
--- NOTE | 2019-08-07 19:30 | NUR ---
DISCHARGE PATIENT GIVEN DISCHARGE INSTRUCTIONS ON FOLLOW UP APPOINTMENT (WILL CALL TOMORROW WITH APPOINTMENT), PAIN CONTROL (RX:NORCO),THERAPY, DRESSING CARE AND ADLs. PATIENT VERBALIZED UNDERSTANDING OF ALL EDUCATION GIVEN VIA TEACH BACK. PORT-A-CATH REMOVED. FLUSHED WITH HEPARIN FLUSH. PATIENT LEFT VIA WHEELCHAIR, NO DISTRESS NOTED UPON DISCHARGE. ALL BELONGINGS TAKEN WITH. REPORT CALLED TO FRANSISCA REYES RN [facility]. NO CONCERNS VOICED.
[2019-08-08] MEDS ORDERED: BISACODYL 10 MG SUPP.RECT RC PRN (19:45)
== END 2019-08-07 19:35 | disposition home health service (06) | DRG 483 ==
LOC: EDSTATUS 08-05 10:00 → DAHIP 08-05 10:18 → 4BH 08-05 20:18
PROVIDERS: ADMIT Orthopaedic Surgery; ATTEND Orthopaedic Surgery
PROC: 0RRK00Z Replacement of Left Shoulder Joint with Reverse Ball and Socket Synthetic Substitute, Open Approach (ICD-10-PCS; principal; 2019-08-05 14:57)
PROC: 3E0T3BZ Introduction of Anesthetic Agent into Peripheral Nerves and Plexi, Percutaneous Approach (ICD-10-PCS; 2019-08-05 14:57)
DX: M75.122 Complete rotator cuff tear or rupture of left shoulder, not specified as traumatic (principal); G89.29 Other chronic pain; E03.9 Hypothyroidism, unspecified; K27.9 Peptic ulcer, site unspecified, unspecified as acute or chronic, without hemorrhage or perforation; N28.9 Disorder of kidney and ureter, unspecified; I95.9 Hypotension, unspecified; N18.3 Chronic kidney disease, stage 3 (moderate); I13.10 Hypertensive heart and chronic kidney disease without heart failure, with stage 1 through stage 4 chronic kidney disease, or unspecified chronic kidney disease
CPT/HCPCS: 36415; 73020; 80048; 85014; 85018; 85027; 85610; 87641; 88304; 88311; 93005; 97039; A4344; A4565; G0378; J0690; J1642; J1885; J2001; J2250; J2405; J2704; J2710; J2795; J3010; J3490; J7030; J7120

== ENCOUNTER 2019-12-23 14:34 | Emergency (ER) | payer MEDICARE ==
[~2019-12-23 14:34] MED LIST changes: +ACET325T51 PO; +ASPI-556 PO; +BACL10TA PO; +BUSP10TA3 PO; +CALC-1123 PO; +CHOL100046 PO; +DOCU100C33 PO; +DONE10TA43 PO; +FURO40TA5 PO; +HYDR-4457 PO; +LACT10SO62 PO; +LORA0.5P MC; +MELO-108 PO; +MEMA5TAB42 PO; +MIRT15TA6 PO; +PANT40TA25 PO; +POTA-79 PO; +PROG100C11 PO; +QUET100T33 PO; +VITA100049 PO
[2019-12-23 15:29] LABS: BASOPHILS % (AUTO) 0.5 % (0.0-5.0); EOSINOPHILS % (AUTO) 1.3 % (0.0-8.0); HEMATOCRIT 34.1 % (36-48); LYMPHOCYTES % (AUTO) 19.8 % (21.0-51.0); MEAN CORPUSCULAR HGB CONC 31.7 g/dL (32.0-36.0); MEAN CORPUSCULAR VOLUME 85.3 fL (79-99); MONOCYTES % (AUTO) 10.9 % (3.0-13.0); NEUTROPHILS % (AUTO) 67.3 % (40.0-77.0); PLATELET COUNT (AUTO) 367 K/uL (130-400); RED CELL DISTRIBUTION WIDTH 16.3 % (11.0-15.5); WHITE BLOOD COUNT (AUTO) 8.2 K/uL (4.8-10.8)
[2019-12-23 15:40] LABS: POTASSIUM 3.6 mmol/L (3.5-5.1)
[2019-12-23 15:47] LABS: ALBUMIN 3.2 g/dL (3.5-5.0); BILIRUBIN,TOTAL 0.2 mg/dL (0.2-1.0); TOTAL PROTEIN, SERUM 6.8 g/dL (6.0-8.3)
[2019-12-23 15:53] LABS: APPEARANCE,URINE Clear (CLEAR); BILIRUBIN,URINE Negative (NEGATIVE); COLOR,URINE Yellow (YELLOW); GLUCOSE, URINE (UA) Negative (NEGATIVE); KETONES,URINE Negative (NEGATIVE); LEUKOCYTE ESTERASE ,URINE Trace (NEGATIVE); NITRATE,URINE Negative (NEGATIVE); OCCULT BLOOD,URINE Negative (NEGATIVE); PROTEIN,URINE Negative (NEGATIVE); UROBILINOGEN,URINE 0.2 mg/dL (0.2-1.0)
[2019-12-23 16:14] LABS: BACTERIA,URINE Rare /HPF (None Seen); RBC,URINE 0-1 /HPF (0-1); SQUAMOUS EPITHELIAL CELL,UR Few /HPF (0-2)
[2019-12-23] MEDS ORDERED: ONDANSETRON HCL 4 MG/2 ML VIAL ONE (16:25)
[2019-12-23] MEDS ORDERED: MORPHINE SULFATE 4 MG/1ML SYG ONE (16:25)
== END 2019-12-23 19:36 | disposition home or self-care (01) ==
LOC: EDH 14:34
DX: G89.29 Other chronic pain (principal); R10.9 Unspecified abdominal pain; F41.9 Anxiety disorder, unspecified; G43.909 Migraine, unspecified, not intractable, without status migrainosus; Z88.8 Allergy status to other drugs, medicaments and biological substances
CPT/HCPCS: 36415; 74176; 80053; 81001; 82150; 83690; 84484; 85025; 93005; 96374; 96375; 99285; J2270; J2405

== ENCOUNTER 2020-07-31 22:16 | Observation (INO) | payer MEDICARE, OTHER ==
[~2020-07-31] VITALS: Ht 167.6 cm; Wt 70.7 kg
[~2020-07-31 22:16] MED LIST changes: +MIRT-22 PO; -MIRT15TA6 PO; -PANT40TA25 PO; +PANT40TA54 PO; -QUET100T33 PO; +QUET100T34 PO
[2020-07-31 23:09] LABS: BASOPHILS % (AUTO) 0.6 % (0.0-5.0); EOSINOPHILS % (AUTO) 1.6 % (0.0-8.0); HEMATOCRIT 37.1 % (36-48); LYMPHOCYTES % (AUTO) 25.3 % (21.0-51.0); MEAN CORPUSCULAR HEMOGLOBIN 27.4 pg (27.0-33.0); MEAN CORPUSCULAR HGB CONC 32.1 g/dL (32.0-36.0); MEAN CORPUSCULAR VOLUME 85.5 fL (79-99); MONOCYTES % (AUTO) 9.5 % (3.0-13.0); NEUTROPHILS % (AUTO) 62.8 % (40.0-77.0); PLATELET COUNT (AUTO) 355 K/uL (130-400); RED BLOOD CELL COUNT(AUTO) 4.34 MIL/uL (4.00-5.50); RED CELL DISTRIBUTION WIDTH 16.9 % (11.0-15.5); WHITE BLOOD COUNT (AUTO) 8.9 K/uL (4.8-10.8)
[2020-07-31 23:20] LABS: CREATININE 1.6 mg/dL (0.5-1.5); POTASSIUM 3.9 mmol/L (3.5-5.1)
[2020-07-31 23:22] LABS: INR 0.94 (0.85-1.15); PROTHROMBIN TIME 10.3 SEC (9.6-11.6)
[2020-07-31 23:23] LABS: PARTIAL THROMBOPLASTIN TIME 22.8 SEC (26.3-35.5)
[2020-07-31 23:24] LABS: ALBUMIN 3.9 g/dL (3.5-5.0); BILIRUBIN,TOTAL 0.2 mg/dL (0.2-1.0); TOTAL PROTEIN, SERUM 7.3 g/dL (6.0-8.3)
[2020-07-31] MEDS ORDERED: NITROGLYCERIN 1GM OINT 1 INCH/1GM TD ONE (23:57)
[2020-08-01] MEDS ORDERED: ENOXAPARIN SODIUM 80 MG/0.8 ML SQ ONE (01:33)
[2020-08-01 02:33] LABS: CREATINE KINASE, TOTAL 84 U/L (21-232); MYOGLOBIN 98 ng/mL (10-92); TROPONIN I < 0.04 ng/mL (0.00-0.06)
[2020-08-01 03:19] LABS: APPEARANCE,URINE Clear (CLEAR); BILIRUBIN,URINE Negative (NEGATIVE); COLOR,URINE Yellow (YELLOW); GLUCOSE, URINE (UA) Negative (NEGATIVE); KETONES,URINE Negative (NEGATIVE); LEUKOCYTE ESTERASE ,URINE Trace (NEGATIVE); NITRATE,URINE Negative (NEGATIVE); OCCULT BLOOD,URINE Negative (NEGATIVE); PH,URINE 7.5 (5.0-8.0); PROTEIN,URINE Negative (NEGATIVE); UROBILINOGEN,URINE 0.2 mg/dL (0.2-1.0)
[2020-08-01 03:28] LABS: BACTERIA,URINE None Seen /HPF (None Seen); RBC,URINE None Seen /HPF (0-1); SQUAMOUS EPITHELIAL CELL,UR Rare /HPF (0-2); WBC,URINE 0-1 /HPF (0-1)
[2020-08-01 04:00] VITALS: BP 92/38
[2020-08-01 06:28] LABS: CREATINE KINASE, TOTAL 78 U/L (21-232); MYOGLOBIN 107 ng/mL (10-92); TROPONIN I < 0.04 ng/mL (0.00-0.06)
[2020-08-01 07:28] VITALS: BP 136/52
[2020-08-01] MEDS ORDERED: MORPHINE 4 MG SYG IV PRN (09:00)
[2020-08-01] MEDS: ENOXAPARIN SODIUM 80 MG/0.8 ML SQ SCH (09:41)
[2020-08-01 10:58] LABS: CREATINE KINASE, TOTAL 79 U/L (21-232); MYOGLOBIN 117 ng/mL (10-92); TROPONIN I < 0.04 ng/mL (0.00-0.06)
[2020-08-01 11:07] VITALS: BP 143/52
[2020-08-01] MEDS ORDERED: MONTELUKAST SODIUM 10 MG TAB PO SCH (14:00)
[2020-08-01] MEDS ORDERED: IBUPROFEN 800 MG TAB PO PRN (14:00)
[2020-08-01] MEDS ORDERED: MONT-39 PO (14:16)
[2020-08-01] MEDS ORDERED: HYDR-3421 PO (14:16)
[2020-08-01] MEDS ORDERED: SERT-439 PO (14:16)
[2020-08-01] MEDS ORDERED: GABA300T25 PO ×2 (14:16)
[2020-08-01] MEDS ORDERED: IBUP-2077 PO (14:16)
[2020-08-01] MEDS: GABAPENTIN 300 MG CAPSULE PO SCH (15:54)
[2020-08-01 16:20] VITALS: BP 117/55
[2020-08-01 19:37] VITALS: BP 120/51
[2020-08-01] MEDS: PROGESTERONE MICRONIZED 100 MG PO SCH (21:00)
[2020-08-01] MEDS: HYDROXYZINE 25 MG TABLET PO SCH (21:16)
[2020-08-01] MEDS: MEMANTINE HCL 5 MG TABLET PO SCH (21:16)
[2020-08-01] MEDS: SUCRALFATE 1 GM TABLET PO SCH (21:16)
[2020-08-01] MEDS: DOCUSATE SODIUM 100 MG CAP PO SCH (21:17)
[2020-08-01] MEDS: MIRTAZAPINE 15 MG TABLET PO SCH (21:17)
[2020-08-01 23:44] VITALS: BP 102/47
[2020-08-02 03:52] VITALS: BP 140/49
[2020-08-02 05:21] LABS: HEMATOCRIT 36.6 % (36-48); MEAN CORPUSCULAR HEMOGLOBIN 28.1 pg (27.0-33.0); MEAN CORPUSCULAR HGB CONC 32.5 g/dL (32.0-36.0); MEAN CORPUSCULAR VOLUME 86.3 fL (79-99); RED BLOOD CELL COUNT(AUTO) 4.24 MIL/uL (4.00-5.50); RED CELL DISTRIBUTION WIDTH 16.9 % (11.0-15.5); WHITE BLOOD COUNT (AUTO) 5.6 K/uL (4.8-10.8)
[2020-08-02 05:28] LABS: ALBUMIN 3.5 g/dL (3.5-5.0); BILIRUBIN,TOTAL 0.2 mg/dL (0.2-1.0); CREATININE 1.5 mg/dL (0.5-1.5); POTASSIUM 3.9 mmol/L (3.5-5.1); TOTAL PROTEIN, SERUM 6.8 g/dL (6.0-8.3)
[2020-08-02] MEDS: LEVOTHYROXINE 150 MCG TABLET PO SCH (06:11)
[2020-08-02 07:51] VITALS: BP 147/50
[2020-08-02] MEDS: MAG OX PO SCH (09:00)
[2020-08-02] MEDS: CALCIUM CARB PO SCH (09:00)
[2020-08-02] MEDS: ZINC SULF PO SCH (09:00)
[2020-08-02] MEDS ORDERED: REGADENOSON 0.4 MG/5 ML PF SYG IVP SCH (10:30)
[2020-08-02] MEDS: SERTRALINE HCL 50 MG TABLET PO SCH (10:59)
[2020-08-02] MEDS: ENOXAPARIN SODIUM 80 MG/0.8 ML SQ SCH (10:59)
[2020-08-02] MEDS: QUETIAPINE FUMARATE 100 MG TAB PO SCH (10:59)
[2020-08-02] MEDS: MEMANTINE HCL 5 MG TABLET PO SCH ×2 (10:59→20:09)
[2020-08-02] MEDS: FUROSEMIDE 40 MG TABLET PO SCH (11:00)
[2020-08-02] MEDS: ASPIRIN 81 MG EC TAB PO SCH (11:00)
[2020-08-02] MEDS: MELOXICAM 7.5 MG TABLET PO SCH (11:00)
[2020-08-02] MEDS: SUCRALFATE 1 GM TABLET PO SCH ×2 (11:00→20:09)
[2020-08-02] MEDS: DOCUSATE SODIUM 100 MG CAP PO SCH ×2 (11:00→20:09)
[2020-08-02] MEDS: HYDROXYZINE 25 MG TABLET PO SCH ×2 (11:01→20:09)
[2020-08-02] MEDS: KCL 20 MEQ ERTAB PO SCH (11:01)
[2020-08-02] MEDS: GABAPENTIN 300 MG CAPSULE PO SCH ×2 (11:01→17:03)
[2020-08-02] MEDS: PANTOPRAZOLE 40 MG TAB DR PO SCH (11:06)
[2020-08-02 11:19] VITALS: BP 148/56
[2020-08-02 16:17] VITALS: BP 139/75
[2020-08-02 19:41] VITALS: BP 119/48
[2020-08-02] MEDS: MIRTAZAPINE 15 MG TABLET PO SCH (20:09)
[2020-08-02] MEDS: PROGESTERONE MICRONIZED 100 MG PO SCH (20:22)
[2020-08-03 00:04] VITALS: BP 109/42
[2020-08-03 03:59] VITALS: BP 110/45
[2020-08-03] MEDS: LEVOTHYROXINE 150 MCG TABLET PO SCH (06:06)
[2020-08-03 07:30] VITALS: BP 123/49
[2020-08-03] MEDS: MAG OX PO SCH (09:00)
[2020-08-03] MEDS: CALCIUM CARB PO SCH (09:00)
[2020-08-03] MEDS: ZINC SULF PO SCH (09:00)
[2020-08-03] MEDS: DOCUSATE SODIUM 100 MG CAP PO SCH (09:46)
[2020-08-03] MEDS: SUCRALFATE 1 GM TABLET PO SCH (09:47)
[2020-08-03] MEDS: ASPIRIN 81 MG EC TAB PO SCH (09:47)
[2020-08-03] MEDS: SERTRALINE HCL 50 MG TABLET PO SCH (09:47)
[2020-08-03] MEDS: GABAPENTIN 300 MG CAPSULE PO SCH (09:48)
[2020-08-03] MEDS: MELOXICAM 7.5 MG TABLET PO SCH (09:49)
[2020-08-03] MEDS: FUROSEMIDE 40 MG TABLET PO SCH (09:49)
[2020-08-03] MEDS: MEMANTINE HCL 5 MG TABLET PO SCH (09:50)
[2020-08-03] MEDS: QUETIAPINE FUMARATE 100 MG TAB PO SCH (09:50)
[2020-08-03] MEDS: PANTOPRAZOLE 40 MG TAB DR PO SCH (09:50)
[2020-08-03] MEDS: KCL 20 MEQ ERTAB PO SCH (09:51)
[2020-08-03] MEDS: ENOXAPARIN SODIUM 80 MG/0.8 ML SQ SCH (09:54)
[2020-08-03] MEDS: HYDROXYZINE 25 MG TABLET PO SCH (10:13)
[2020-08-03 11:00] VITALS: BP 119/33
[2020-08-03 12:00] VITALS: BP 121/52
== END 2020-08-03 15:00 | disposition home or self-care (01) ==
LOC: EDH 22:16 → EDHIP 08-01 01:27 → 3DH 08-01 02:30
PROVIDERS: ADMIT Internal Medicine; ATTEND Internal Medicine
DX: R07.89 Other chest pain (principal); Z20.822 Contact with and (suspected) exposure to COVID-19; I24.9 Acute ischemic heart disease, unspecified; N17.9 Acute kidney failure, unspecified; I25.10 Atherosclerotic heart disease of native coronary artery without angina pectoris; G89.29 Other chronic pain; M54.9 Dorsalgia, unspecified; N18.9 Chronic kidney disease, unspecified; E03.9 Hypothyroidism, unspecified; F41.9 Anxiety disorder, unspecified; G43.909 Migraine, unspecified, not intractable, without status migrainosus; Z86.73 Personal history of transient ischemic attack (TIA), and cerebral infarction without residual deficits; Z79.899 Other long term (current) drug therapy; Z88.6 Allergy status to analgesic agent; Z88.8 Allergy status to other drugs, medicaments and biological substances
CPT/HCPCS: 36415 ×3; 71045; 78452; 80053 ×2; 81001; 82550 ×4; 82948; 83605; 83874 ×3; 84484 ×4; 85025; 85027; 85378; 85610; 85730; 87040 ×2; 87088; 93005; 93017; 96372 ×3; 96374; 99285; A9500 ×2; G0378 ×59; J1650 ×4; J2270; J2785; U0003

== ENCOUNTER 2021-07-06 20:16 | Emergency (ER) | payer OTHER ==
[~2021-07-06] VITALS: Ht 170.2 cm; Wt 75.7 kg
[~2021-07-06 20:16] MED LIST changes: -ACET325T51 PO; -BACL10TA PO; -BUSP10TA3 PO; -CHOL100046 PO; -DONE10TA43 PO; +GABA300T25 PO; +HYDR-3421 PO; -HYDR-4457 PO; +IBUP-2077 PO; -LACT10SO62 PO; -LORA0.5P MC; +MONT-39 PO; +SERT-439 PO; -VITA100049 PO
[2021-07-06] MEDS ORDERED: 0.9%NACL 1000ML 1,000 ML IV ONE (20:17)
[2021-07-06 21:09] LABS: BASOPHILS % (AUTO) 0.7 % (0.0-5.0); EOSINOPHILS % (AUTO) 1.6 % (0.0-8.0); HEMATOCRIT 35.5 % (36-48); LYMPHOCYTES % (AUTO) 24.3 % (21.0-51.0); MEAN CORPUSCULAR HEMOGLOBIN 29.9 pg (27.0-33.0); MEAN CORPUSCULAR HGB CONC 33.5 g/dL (32.0-36.0); MEAN CORPUSCULAR VOLUME 89.2 fL (79-99); MONOCYTES % (AUTO) 12.8 % (3.0-13.0); NEUTROPHILS % (AUTO) 60.4 % (40.0-77.0); PLATELET COUNT (AUTO) 313 K/uL (130-400); RED BLOOD CELL COUNT(AUTO) 3.98 MIL/uL (4.00-5.50); WHITE BLOOD COUNT (AUTO) 5.8 K/uL (4.8-10.8)
[2021-07-06 21:33] LABS: B-TYPE NATRIURETIC PEPTIDE 90 pg/mL (0-100)
[2021-07-06 21:53] LABS: APPEARANCE,URINE Clear (CLEAR); BILIRUBIN,URINE Negative (NEGATIVE); COLOR,URINE Yellow (YELLOW); GLUCOSE, URINE (UA) Negative (NEGATIVE); KETONES,URINE Negative (NEGATIVE); LEUKOCYTE ESTERASE ,URINE Small (NEGATIVE); NITRATE,URINE Negative (NEGATIVE); OCCULT BLOOD,URINE Negative (NEGATIVE); PH,URINE 7.5 (5.0-8.0); PROTEIN,URINE Negative (NEGATIVE); UROBILINOGEN,URINE 0.2 mg/dL (0.2-1.0)
[2021-07-06 22:02] LABS: BACTERIA,URINE Few /HPF (None Seen); HYALINE CASTS, URINE 0-1 /LPF (0-1 /LPF); RBC,URINE 0-1 /HPF (0-1); SQUAMOUS EPITHELIAL CELL,UR Few /HPF (0-2); TRANSITIONAL EPI CELLS,URINE Few /HPF (None Seen)
[2021-07-06 22:59] LABS: ALBUMIN 3.5 g/dL (3.5-5.0); BILIRUBIN,TOTAL 0.3 mg/dL (0.2-1.0); CREATININE 1.3 mg/dL (0.5-1.5); POTASSIUM 4.4 mmol/L (3.5-5.1); TOTAL PROTEIN, SERUM 6.4 g/dL (6.0-8.3)
[2021-07-06] MEDS ORDERED: IOHEXOL 350 MG/ML 100ML INFUS..BTL IV ONE (23:49)
[2021-07-07] MEDS ORDERED: ENOXAPARIN SODIUM 80 MG/0.8 ML SQ ONE (01:37)
[2021-07-07] MEDS ORDERED: 0.9% NACL 500ML IV.SOLN 500 ML IV ONE (02:00)
[2021-07-07 03:10] VITALS: BP 124/59
== END 2021-07-07 05:21 | disposition home or self-care (01) ==
LOC: EDH 20:16
DX: R07.89 Other chest pain (principal); E87.1 Hypo-osmolality and hyponatremia; N18.2 Chronic kidney disease, stage 2 (mild); J44.9 Chronic obstructive pulmonary disease, unspecified; E86.0 Dehydration; Z20.822 Contact with and (suspected) exposure to COVID-19; Z72.0 Tobacco use; Z79.899 Other long term (current) drug therapy; Z88.8 Allergy status to other drugs, medicaments and biological substances; Z79.82 Long term (current) use of aspirin
CPT/HCPCS: 36415; 71045; 71275; 80053; 81001; 82550; 83880; 84484; 85025; 85378; 87635; 93005; 96360; 96372; 99285; C9803; J1650; J7030; Q9967

== ENCOUNTER 2022-04-12 13:29 | Observation (INO) | payer OTHER ==
[~2022-04-12] VITALS: Ht 170.2 cm; Wt 77.7 kg
[~2022-04-12 13:29] MED LIST changes: -ASPI-556 PO; +BACL10TA PO; +BUSP15TA3 PO; +CLOP75TA32 PO; +DONE10TA43 PO; +FURO20TA4 PO; -FURO40TA5 PO; +GABA-533 PO; -GABA300T25 PO; -LEVO150T11 PO; +LEVO88CA4 PO; -MELO-108 PO; +ONDA-104 PO; -PROG100C11 PO; +VALA500T42 PO
[2022-04-12 13:59] LABS: BASOPHILS % (AUTO) 0.3 % (0.0-5.0); EOSINOPHILS % (AUTO) 0.2 % (0.0-8.0); HEMATOCRIT 35.8 % (36-48); LYMPHOCYTES % (AUTO) 18.2 % (21.0-51.0); MEAN CORPUSCULAR HEMOGLOBIN 23.4 pg (27.0-33.0); MEAN CORPUSCULAR HGB CONC 31.8 g/dL (32.0-36.0); MEAN CORPUSCULAR VOLUME 73.4 fL (79-99); MONOCYTES % (AUTO) 9.7 % (3.0-13.0); NEUTROPHILS % (AUTO) 71.4 % (40.0-77.0); PLATELET COUNT (AUTO) 428 K/uL (130-400); RED BLOOD CELL COUNT(AUTO) 4.88 MIL/uL (4.00-5.50); RED CELL DISTRIBUTION WIDTH 18.2 % (11.0-15.5); WHITE BLOOD COUNT (AUTO) 12.5 K/uL (4.8-10.8)
[2022-04-12 14:10] LABS: CREATININE 1.3 mg/dL (0.5-1.5); POTASSIUM 3.7 mmol/L (3.5-5.1)
[2022-04-12 14:15] LABS: ALBUMIN 3.9 g/dL (3.5-5.0); TOTAL PROTEIN, SERUM 7.7 g/dL (6.0-8.3)
[2022-04-12 14:56] LABS: APPEARANCE,URINE CLEAR (CLEAR); BILIRUBIN,URINE NEGATIVE (NEGATIVE); COLOR,URINE YELLOW (YELLOW); GLUCOSE, URINE (UA) NEGATIVE (NEGATIVE); KETONES,URINE NEGATIVE (NEGATIVE); LEUKOCYTE ESTERASE ,URINE 25 Leu/uL (NEGATIVE); NITRATE,URINE NEGATIVE (NEGATIVE); OCCULT BLOOD,URINE NEGATIVE (NEGATIVE); PROTEIN,URINE NEGATIVE (NEGATIVE); UROBILINOGEN,URINE 0.2 mg/dL (0.2-1.0)
[2022-04-12 15:03] LABS: BACTERIA,URINE RARE /HPF (None Seen); MUCUS,URINE RARE LPF (None Seen); RBC,URINE 0-1 /HPF (0-1); SQUAMOUS EPITHELIAL CELL,UR RARE /HPF (0-2)
[2022-04-12] MEDS ORDERED: CLONIDINE HCL 0.1 MG TABLET PO PRN (16:00)
[2022-04-12 20:23] VITALS: BP 138/54
[2022-04-12] MEDS ORDERED: ENOXAPARIN SODIUM 1 MG/KG SQ SCH (21:00)
[2022-04-12] MEDS: GABAPENTIN 300 MG CAPSULE PO SCH (21:48)
[2022-04-12] MEDS: DONEPEZIL HCL 5 MG TAB PO SCH (21:49)
[2022-04-12] MEDS: MIRTAZAPINE 15 MG TABLET PO SCH (21:49)
[2022-04-12] MEDS: BUSPIRONE HCL 5 MG TABLET PO SCH (21:49)
[2022-04-12] MEDS: QUETIAPINE FUMARATE 100 MG TAB PO SCH (21:49)
[2022-04-12] MEDS: MEMANTINE HCL 5 MG TABLET PO SCH (21:50)
[2022-04-12] MEDS: HYDROXYZINE 25 MG TABLET PO SCH (21:50)
[2022-04-12] MEDS: ENOXAPARIN SODIUM 80 MG/0.8 ML SQ SCH (21:55)
[2022-04-12 23:34] VITALS: BP 130/57
[2022-04-13 03:21] LABS: BASOPHILS % (AUTO) 0.7 % (0.0-5.0); EOSINOPHILS % (AUTO) 1.7 % (0.0-8.0); HEMATOCRIT 28.5 % (36-48); LYMPHOCYTES % (AUTO) 29.2 % (21.0-51.0); MEAN CORPUSCULAR HEMOGLOBIN 22.9 pg (27.0-33.0); MEAN CORPUSCULAR HGB CONC 31.6 g/dL (32.0-36.0); MEAN CORPUSCULAR VOLUME 72.5 fL (79-99); MONOCYTES % (AUTO) 8.9 % (3.0-13.0); NEUTROPHILS % (AUTO) 59.1 % (40.0-77.0); PLATELET COUNT (AUTO) 345 K/uL (130-400); RED BLOOD CELL COUNT(AUTO) 3.93 MIL/uL (4.00-5.50); RED CELL DISTRIBUTION WIDTH 17.7 % (11.0-15.5); WHITE BLOOD COUNT (AUTO) 7.1 K/uL (4.8-10.8)
[2022-04-13 03:39] LABS: ALBUMIN 2.9 g/dL (3.5-5.0); CREATININE 1.2 mg/dL (0.5-1.5); POTASSIUM 3.5 mmol/L (3.5-5.1); TOTAL PROTEIN, SERUM 5.6 g/dL (6.0-8.3)
[2022-04-13 04:35] VITALS: BP 117/51
[2022-04-13] MEDS: LEVOTHYROXINE 88 MCG TABLET PO SCH (05:29)
[2022-04-13] MEDS: ACETAMINOPHEN 325 MG TAB PO PRN ×2 (06:00→08:59)
[2022-04-13 07:00] VITALS: BP 108/39
[2022-04-13] MEDS: HYDROXYZINE 25 MG TABLET PO SCH ×2 (08:30→21:26)
[2022-04-13] MEDS: MONTELUKAST SODIUM 10 MG TAB PO SCH (08:30)
[2022-04-13] MEDS: SERTRALINE HCL 50 MG TABLET PO SCH (08:30)
[2022-04-13] MEDS: ASPIRIN 81 MG EC TAB PO SCH (08:30)
[2022-04-13] MEDS: BUSPIRONE HCL 5 MG TABLET PO SCH ×2 (08:31→21:26)
[2022-04-13] MEDS: KCL 20 MEQ ERTAB PO SCH (08:31)
[2022-04-13] MEDS: GABAPENTIN 300 MG CAPSULE PO SCH ×3 (08:32→21:26)
[2022-04-13] MEDS: CLOPIDOGREL 75MG TAB PO SCH (08:32)
[2022-04-13] MEDS: ENOXAPARIN SODIUM 80 MG/0.8 ML SQ SCH ×2 (08:36→21:27)
[2022-04-13] MEDS: MEMANTINE HCL 5 MG TABLET PO SCH ×2 (09:30→21:25)
[2022-04-13 11:00] VITALS: BP 128/46
[2022-04-13] MEDS: FUROSEMIDE 20MG VIAL IV SCH (13:57)
[2022-04-13] MEDS ORDERED: ONDANSETRON 4MG INJ IVP PRN (14:00)
[2022-04-13 16:00] VITALS: BP 117/47
[2022-04-13 19:50] VITALS: BP 122/55
[2022-04-13] MEDS: MIRTAZAPINE 15 MG TABLET PO SCH (21:25)
[2022-04-13] MEDS: QUETIAPINE FUMARATE 100 MG TAB PO SCH (21:26)
[2022-04-13] MEDS: DONEPEZIL HCL 5 MG TAB PO SCH (21:26)
[2022-04-14] VITALS (7 sets, daily range): BP systolic 102–135; BP diastolic 46–72
[2022-04-14] MEDS: FUROSEMIDE 20MG VIAL IV SCH ×2 (06:24→13:53)
[2022-04-14] MEDS: GABAPENTIN 300 MG CAPSULE PO SCH ×3 (07:23→20:09)
[2022-04-14] MEDS: ASPIRIN 81 MG EC TAB PO SCH (08:54)
[2022-04-14] MEDS: MONTELUKAST SODIUM 10 MG TAB PO SCH (08:54)
[2022-04-14] MEDS: MEMANTINE HCL 5 MG TABLET PO SCH ×2 (08:54→20:06)
[2022-04-14] MEDS: KCL 20 MEQ ERTAB PO SCH (08:54)
[2022-04-14] MEDS: BUSPIRONE HCL 5 MG TABLET PO SCH ×2 (08:54→20:07)
[2022-04-14] MEDS: HYDROXYZINE 25 MG TABLET PO SCH ×2 (08:55→20:06)
[2022-04-14] MEDS: CLOPIDOGREL 75MG TAB PO SCH (08:57)
[2022-04-14] MEDS: SERTRALINE HCL 50 MG TABLET PO SCH (08:57)
[2022-04-14] MEDS: ENOXAPARIN SODIUM 80 MG/0.8 ML SQ SCH ×2 (08:58→20:08)
[2022-04-14] MEDS: LEVOTHYROXINE 88 MCG TABLET PO SCH (08:59)
[2022-04-14] MEDS ORDERED: REGADENOSON 0.4 MG/5 ML PF SYG IVP SCH (09:30)
[2022-04-14] MEDS: QUETIAPINE FUMARATE 100 MG TAB PO SCH (20:06)
[2022-04-14] MEDS: DONEPEZIL HCL 5 MG TAB PO SCH (20:06)
[2022-04-14] MEDS: MIRTAZAPINE 15 MG TABLET PO SCH (20:07)
[2022-04-15 04:00] VITALS: BP 110/50
[2022-04-15] MEDS: LEVOTHYROXINE 88 MCG TABLET PO SCH (05:47)
[2022-04-15] MEDS: FUROSEMIDE 20MG VIAL IV SCH ×2 (05:47→14:00)
[2022-04-15 07:00] LABS: ALBUMIN 3.2 g/dL (3.5-5.0); CREATININE 1.3 mg/dL (0.5-1.5); POTASSIUM 3.8 mmol/L (3.5-5.1); TOTAL PROTEIN, SERUM 6.3 g/dL (6.0-8.3)
[2022-04-15 08:00] VITALS: BP 129/65
[2022-04-15] MEDS: ASPIRIN 81 MG EC TAB PO SCH (09:46)
[2022-04-15] MEDS: BUSPIRONE HCL 5 MG TABLET PO SCH (09:46)
[2022-04-15] MEDS: MONTELUKAST SODIUM 10 MG TAB PO SCH (09:46)
[2022-04-15] MEDS: CLOPIDOGREL 75MG TAB PO SCH (09:47)
[2022-04-15] MEDS: MEMANTINE HCL 5 MG TABLET PO SCH (09:47)
[2022-04-15] MEDS: HYDROXYZINE 25 MG TABLET PO SCH (09:49)
[2022-04-15] MEDS: ENOXAPARIN SODIUM 80 MG/0.8 ML SQ SCH (09:50)
[2022-04-15] MEDS: SERTRALINE HCL 50 MG TABLET PO SCH (09:55)
[2022-04-15] MEDS: GABAPENTIN 300 MG CAPSULE PO SCH ×2 (09:55→14:23)
[2022-04-15] MEDS: KCL 20 MEQ ERTAB PO SCH (09:59)
[2022-04-15 12:07] VITALS: BP 134/64
[2022-04-15] MEDS: ACETAMINOPHEN 325 MG TAB PO PRN (14:24)
[2022-04-15 15:56] VITALS: BP 134/61
[2022-04-15] MEDS ORDERED: FURO20TA6 PO ×2 (16:39→16:40)
[2022-04-15] MEDS ORDERED: HEPARIN PF LOCK 500 UNIT/5ML IV SCH (17:00)
[2022-04-16] MEDS ORDERED: FUROSEMIDE 20 MG TABLET PO SCH (09:00)
[2022-04-16] MEDS ORDERED: PANTOPRAZOLE 40 MG TAB DR PO SCH (09:00)
== END 2022-04-15 18:41 | disposition home or self-care (01) ==
LOC: EDH 13:29 → EDBD 13:29 → UNDOADMIN 15:38 → EDHIP 15:38 → 2AH 17:20 → EDHIP 17:20 → 2AH 17:50
PROVIDERS: ADMIT Internal Medicine; ATTEND Internal Medicine
DX: R07.89 Other chest pain (principal); I25.10 Atherosclerotic heart disease of native coronary artery without angina pectoris; J44.9 Chronic obstructive pulmonary disease, unspecified; E03.9 Hypothyroidism, unspecified; F41.8 Other specified anxiety disorders; I48.0 Paroxysmal atrial fibrillation; E78.00 Pure hypercholesterolemia, unspecified; E87.1 Hypo-osmolality and hyponatremia; F03.94 Unspecified dementia, unspecified severity, with anxiety; I10 Essential (primary) hypertension; I25.2 Old myocardial infarction; F17.210 Nicotine dependence, cigarettes, uncomplicated; Z90.49 Acquired absence of other specified parts of digestive tract; Z90.710 Acquired absence of both cervix and uterus; Z95.5 Presence of coronary angioplasty implant and graft; Z79.899 Other long term (current) drug therapy
CPT/HCPCS: 96372 ×4; 99285; 82550 ×3; 83874 ×3; 84484 ×4; 80053 ×3; 85025 ×2; 81001; 36415 ×3; 71045; 93005; 96374; 96375 ×2; 83880; 93306; 93356; 96376 ×2; 93017; 78452; G0378 ×67; J1650 ×6; J2405; J1940 ×4; J2785; A9500 ×2; J1642

== ENCOUNTER 2022-10-31 00:25 | Emergency (ER) | payer OTHER ==
[~2022-10-31] VITALS: Ht 170.2 cm; Wt 74.4 kg
[~2022-10-31 00:25] MED LIST changes: -BACL10TA PO; -BUSP15TA3 PO; -CALC-1123 PO; -CLOP75TA32 PO; -DOCU100C33 PO; -DONE10TA43 PO; -FURO20TA4 PO; -GABA-533 PO; +GABA300C PO; -HYDR-3421 PO; -IBUP-2077 PO; -MEMA5TAB42 PO; -MIRT-22 PO; -MONT-39 PO; -ONDA-104 PO; -POTA-79 PO; -QUET100T34 PO; -SERT-439 PO; -SUCR1TAB2 PO; -VALA500T42 PO
[2022-10-31 01:08] LABS: BASOPHILS % (AUTO) 0.6 % (0.0-5.0); EOSINOPHILS % (AUTO) 0.7 % (0.0-8.0); HEMATOCRIT 33.7 % (36-48); LYMPHOCYTES % (AUTO) 23.8 % (21.0-51.0); MEAN CORPUSCULAR HEMOGLOBIN 24.4 pg (27.0-33.0); MEAN CORPUSCULAR HGB CONC 31.8 g/dL (32.0-36.0); MEAN CORPUSCULAR VOLUME 76.9 fL (79-99); NEUTROPHILS % (AUTO) 62.7 % (40.0-77.0); PLATELET COUNT (AUTO) 402 K/uL (130-400); RED BLOOD CELL COUNT(AUTO) 4.38 MIL/uL (4.00-5.50); RED CELL DISTRIBUTION WIDTH 18.6 % (11.0-15.5); WHITE BLOOD COUNT (AUTO) 8.4 K/uL (4.8-10.8)
[2022-10-31 01:29] LABS: CREATININE 1.3 mg/dL (0.5-1.5); POTASSIUM 4.7 mmol/L (3.5-5.1)
[2022-10-31 01:33] LABS: ALBUMIN 3.5 g/dL (3.5-5.0); TOTAL PROTEIN, SERUM 6.9 g/dL (6.0-8.3)
[2022-10-31] MEDS ORDERED: FAMOTIDINE 20MG VIAL IV ONE (02:30)
[2022-10-31] MEDS ORDERED: KETOROLAC 30MG VIAL (30MG/ML) IVP ONE (02:30)
[2022-10-31] MEDS ORDERED: METOCLOPRAMIDE 10 MG/2 ML VIAL IVP ONE (02:30)
[2022-10-31] MEDS ORDERED: MORPHINE 2 MG SYG IVP ONE ×2 (03:00→03:30)
[2022-10-31 03:04] LABS: APPEARANCE,URINE CLEAR (CLEAR); BILIRUBIN,URINE NEGATIVE (NEGATIVE); COLOR,URINE LIGHT-YELLOW (YELLOW); GLUCOSE, URINE (UA) NEGATIVE (NEGATIVE); KETONES,URINE NEGATIVE (NEGATIVE); LEUKOCYTE ESTERASE ,URINE NEGATIVE Leu/uL (NEGATIVE); NITRATE,URINE NEGATIVE (NEGATIVE); OCCULT BLOOD,URINE NEGATIVE (NEGATIVE); PH,URINE 6.5 (5.0-8.0); PROTEIN,URINE NEGATIVE (NEGATIVE); UROBILINOGEN,URINE 0.2 mg/dL (0.2-1.0)
[2022-10-31] MEDS ORDERED: MELO-106 PO (04:06)
[2022-10-31 04:43] VITALS: BP 145/60
== END 2022-10-31 04:48 | disposition home or self-care (01) ==
LOC: EDH 00:25
DX: G89.29 Other chronic pain (principal); M54.50 Low back pain, unspecified; M25.551 Pain in right hip; E03.9 Hypothyroidism, unspecified; F03.90 Unspecified dementia, unspecified severity, without behavioral disturbance, psychotic disturbance, mood disturbance, and anxiety; F17.200 Nicotine dependence, unspecified, uncomplicated; K21.9 Gastro-esophageal reflux disease without esophagitis; Z79.899 Other long term (current) drug therapy; Z98.890 Other specified postprocedural states
CPT/HCPCS: 99284; 96374; 96375; 80053; 83690; 85025; 81003; 36415; 96376; J3490; J2270 ×2; J1885; J2765

== ENCOUNTER → 2023-07-01 | Emergency (ER) | payer OTHER ==
[~2023-07-01] VITALS: Ht 167.6 cm; Wt 72.6 kg
[~2023-07-01] MED LIST changes: +BUDE1AMP2 IH; +BUDESONIDE 0.5 MG/2 ML INH IH SCH; +DEXAMETHASONE SOD PHOSPHATE 4 MG/ML 1ML VIAL IVP STA; +IPRATROPIUM/ALBUTEROL SULFATE 3 ML SOLUTION IH ONE; +LEVO-70 PO; +LEVOFLOXACIN 500 MG TABLET PO ONE; +MELO-106 PO
[2023-07-01 12:56] VITALS: PULSE 74; RESP 20
[2023-07-01 14:45] LABS: BASOPHILS # (AUTO) 0.04 K/uL (0.00-0.20); BASOPHILS % (AUTO) 0.2 % (0.0-5.0); HEMATOCRIT 27.4 % (36-48); IMMATURE GRANULOCYTE ABSOLUTE 0.14 K/uL (0-1); LYMPHOCYTES # (AUTO) 0.3 K/uL (1.0-4.8); LYMPHOCYTES % (AUTO) 1.6 % (21.0-51.0); MEAN CORPUSCULAR HEMOGLOBIN 22.6 pg (27.0-33.0); MEAN CORPUSCULAR HGB CONC 32.5 g/dL (32.0-36.0); MEAN CORPUSCULAR VOLUME 69.7 fL (79-99); MONOCYTES # (AUTO) 1.1 K/uL (0.1-1.0); MONOCYTES % (AUTO) 5.3 % (3.0-13.0); NEUTROPHILS # (AUTO) 18.4 K/uL (1.8-7.7); NEUTROPHILS % (AUTO) 92.2 % (40.0-77.0); PLATELET COUNT (AUTO) 447 K/uL (130-400); RED BLOOD CELL COUNT(AUTO) 3.93 MIL/uL (4.00-5.50); RED CELL DISTRIBUTION WIDTH 18.2 % (11.0-15.5); WHITE BLOOD COUNT (AUTO) 19.9 K/uL (4.8-10.8)
[2023-07-01 14:56] LABS: CREATININE 1.5 mg/dL (0.5-1.5); POTASSIUM 3.6 mmol/L (3.5-5.1)
[2023-07-01 15:01] LABS: ALBUMIN 3.6 g/dL (3.5-5.0); BILIRUBIN,TOTAL 0.4 mg/dL (0.2-1.0); TOTAL PROTEIN, SERUM 6.7 g/dL (6.0-8.3)
[2023-07-01 15:05] LABS: B-TYPE NATRIURETIC PEPTIDE 143 pg/mL (0-100)
[2023-07-01 15:08] LABS: BAND NEUTROPHILS % (MANUAL) 7 % (0-2); LYMPHOCYTES % (MANUAL) 2 % (22-44); MAN.DIFF COMMENT-IMPRESSION MANUAL DIFFERENTIAL; MONOCYTES % (MANUAL) 1 % (2-9); PLATELET MORPHOLOGY COMMENT SLIGHT INCREASED; SEGMENTED NEUTROPHILS % 90 % (40-70); TOTAL CELLS COUNTED 100; WBC MORPHOLOGY CONSISTENT W/DIFF
[2023-07-01 16:35] VITALS: BP 135/43; PULSE 80; RESP 18; O2SAT 100
[2023-07-01 16:46] LABS: APPEARANCE,URINE CLEAR (CLEAR); BILIRUBIN,URINE NEGATIVE (NEGATIVE); COLOR,URINE YELLOW (YELLOW); GLUCOSE, URINE (UA) NEGATIVE (NEGATIVE); KETONES,URINE 5 mg/dL (NEGATIVE); LEUKOCYTE ESTERASE ,URINE NEGATIVE Leu/uL (NEGATIVE); NITRATE,URINE NEGATIVE (NEGATIVE); OCCULT BLOOD,URINE NEGATIVE (NEGATIVE); PROTEIN,URINE NEGATIVE (NEGATIVE); UROBILINOGEN,URINE 0.2 mg/dL (0.2-1.0)
[2023-07-01 16:47] LABS: ADD UA MICROSCOPIC YES
[2023-07-01 16:48] LABS: RBC,URINE 0-1 /HPF (0-1); WBC,URINE 0-1 /HPF (0-1)
== END ==
LOC: EDH 12:04
DX: J44.1 Chronic obstructive pulmonary disease with (acute) exacerbation (principal); E87.1 Hypo-osmolality and hyponatremia; R73.9 Hyperglycemia, unspecified; E03.9 Hypothyroidism, unspecified; F03.90 Unspecified dementia, unspecified severity, without behavioral disturbance, psychotic disturbance, mood disturbance, and anxiety; F17.200 Nicotine dependence, unspecified, uncomplicated; K21.9 Gastro-esophageal reflux disease without esophagitis; Z79.1 Long term (current) use of non-steroidal anti-inflammatories (NSAID); Z79.51 Long term (current) use of inhaled steroids; Z79.899 Other long term (current) drug therapy; Z20.822 Contact with and (suspected) exposure to COVID-19
CPT/HCPCS: 99285; 96374; 71045; 87426; 84484; 80053; 83880; 85025; 81001; 36415; 93005; 94640; J1100

== ENCOUNTER → 2023-09-09 | Outpatient (CLI) | payer OTHER ==
[~2023-09-09] MED LIST changes: -BUDESONIDE 0.5 MG/2 ML INH IH SCH; -DEXAMETHASONE SOD PHOSPHATE 4 MG/ML 1ML VIAL IVP STA; -IPRATROPIUM/ALBUTEROL SULFATE 3 ML SOLUTION IH ONE; -LEVOFLOXACIN 500 MG TABLET PO ONE
== END | disposition home or self-care (01) ==
LOC: SHCH 09:31
PROVIDERS: ATTEND Student in an Organized Health Care Education/Training Program
DX: R06.02 Shortness of breath (principal)
CPT/HCPCS: 93306